=== PATIENT | female | born 1985 | race Caucasian/White ===

== ENCOUNTER 2024-02-29 16:03 | Emergency (ER) | payer OTHER, SELFPAY ==
[2024-02-29 16:05] VITALS: BP 140/82; BMI 20.1
--- NOTE | 2024-02-29 17:27 | ED.GENMED ---
History of Present Illness
<GERA Venegas Last Filed: 02/29/24 22:29>
General
Chief Complaint: Abdominal Pain
Source: patient
Time Seen by Provider: 02/29/24 16:44
Travel History
Have you had any contact with someone who has COVID-19?: No
Do you have any symptoms of coronavirus? Fever > 100 degrees, chills, cough, shortness of breath, sore throat, loss of taste or smell, muscle aches, or headache?: No
History of Present Illness
History of Present Illness:
38-year-old female otherwise healthy presents complaining of right lower quadrant abdominal pain starting 2 to 3 days ago. The pain is sharp fairly constant in nature. Made worse with motion and to the touch. She is due for her menstrual cycle
tomorrow. She notes a brown discharge which is not typical. She notes chills but no measurable fever. The pain occasionally radiates to the back. She has no increased pain with eating but does note a decreased appetite. She says she was
initially seen by her family doctor then sent here for further evaluation. No urinary symptoms. No other complaints. She is monogamous with her
Past History
<GERA Venegas Last Filed: 02/29/24 22:29>
Past History
ED Past Medical History: Other (C-diff)
ED Past Surgical History: None
Social History
Tobacco: Non-smoker
Alcohol: None
Personal:
Living: with family
Phy Exam
<GERA Venegas Last Filed: 02/29/24 22:29>
Physical Exam
Physical Exam:
General: Well appearing male no acute distress
HEENT: NC/AT
Heart: RRR, no murmurs
Lungs: CTA bilaterally
Abd: soft, tender to RLQ, mild guarding, no rebound, no CVA tenderness
Ext: no cyanosis or edema
Skin: warm, no rash or lesions
Course
<Kamron Mccrary PA-C - Last Filed: 02/29/24 22:29>
Orders/Labs/Results
Orders:
Orders
02/29/24 17:23
Iohexol [Omnipaque] See Protocol PO NOW STA
Test Result ONCE
US Pelvis W Transvag Combined Urgent
Comment:
Reason For Exam: RLQ pain ..
02/29/24 17:32
Complete Blood Count/With Diff Urgent
Urinalysis Reflex To Culture Urgent
Date Specimen was Collected: 02/29/24
Time Specimen was Collected: 17:30
Urine Microscopic Reflex Cult Urgent
02/29/24 19:30
Beta HCG Quantitative Urgent
Is this a screen?: No
Comment: ADD ON
Comprehensive Metabolic Panel Urgent
HCG, Serum Qualitative Screen Urgent
02/29/24 20:02
Add On- LAB Urgent
Tests Added?: beta hcg
02/29/24 21:13
US Abdomen - Appendix Only Urgent
Comment:
Reason For Exam: RLQ pain, positive test
02/29/24 22:21
Influenza A+B Rapid Molecular Stat
[facility] Source: Nasal Swab
Specimen Description:
Abnormal Lab Results
02/29/24 02/29/24
17:32 19:30
MCH 32.3 H pg
(27.0-31.0)
Absolute Monos (auto) 0.7 H 10^3/uL
(0.1-0.6)
Lymphocytes % 15.3 L %
(20.5-51.1)
Sodium 132 L mmol/L
(135-145)
Carbon Dioxide 21 L mmol/L
(22-30)
Creatinine 0.4 L mg/dL
(0.6-1.0)
Urine Ketones 1+ A
(Negative)
Ur Occult Blood Reflex 2+ A
(Negative)
Urine RBC 3-6 A /HPF
(0-2)
Urine Bacteria (Reflex) Few A
(Negative)
02/29/24 17:32
02/29/24 19:30
Vital Signs
Initial and Last Documented VS:
Initial Vital Signs
Temp Pulse Resp BP Pulse Ox
97.6 F 95 16 140/82 100
02/29/24 16:05 02/29/24 16:05 02/29/24 16:05 02/29/24 16:05 02/29/24 16:05
Last Documented Vital Signs
Temp Pulse Resp BP Pulse Ox
98.2 F 89 16 106/53 100
02/29/24 22:30 02/29/24 22:30 02/29/24 22:30 02/29/24 22:30 02/29/24 22:30
<Evy Billings MD - Last Filed: 02/29/24 22:09>
Orders/Labs/Results
Orders:
Orders
02/29/24 17:23
Iohexol [Omnipaque] See Protocol PO NOW STA
Test Result ONCE
US Pelvis W Transvag Combined Urgent
Comment:
Reason For Exam: RLQ pain ..
02/29/24 17:32
Complete Blood Count/With Diff Urgent
Urinalysis Reflex To Culture Urgent
Date Specimen was Collected: 02/29/24
Time Specimen was Collected: 17:30
Urine Microscopic Reflex Cult Urgent
02/29/24 19:30
Beta HCG Quantitative Urgent
Is this a screen?: No
Comment: ADD ON
Comprehensive Metabolic Panel Urgent
HCG, Serum Qualitative Screen Urgent
02/29/24 20:02
Add On- LAB Urgent
Tests Added?: beta hcg
02/29/24 21:13
US Abdomen - Appendix Only Urgent
Comment:
Reason For Exam: RLQ pain, positive test
02/29/24 22:21
Influenza A+B Rapid Molecular Stat
[facility] Source: Nasal Swab
Specimen Description:
Abnormal Lab Results
02/29/24 02/29/24
17:32 19:30
MCH 32.3 H pg
(27.0-31.0)
Absolute Monos (auto) 0.7 H 10^3/uL
(0.1-0.6)
Lymphocytes % 15.3 L %
(20.5-51.1)
Sodium 132 L mmol/L
(135-145)
Carbon Dioxide 21 L mmol/L
(22-30)
Creatinine 0.4 L mg/dL
(0.6-1.0)
Urine Ketones 1+ A
(Negative)
Ur Occult Blood Reflex 2+ A
(Negative)
Urine RBC 3-6 A /HPF
(0-2)
Urine Bacteria (Reflex) Few A
(Negative)
02/29/24 17:32
02/29/24 19:30
Vital Signs
Initial and Last Documented VS:
Initial Vital Signs
Temp Pulse Resp BP Pulse Ox
97.6 F 95 16 140/82 100
02/29/24 16:05 02/29/24 16:05 02/29/24 16:05 02/29/24 16:05 02/29/24 16:05
Last Documented Vital Signs
Temp Pulse Resp BP Pulse Ox
98.2 F 89 16 106/53 100
02/29/24 22:30 02/29/24 22:30 02/29/24 22:30 02/29/24 22:30 02/29/24 22:30
<Niurka Lombardi, TELEPHONE CLERK - Last Filed: 03/02/24 15:37>
Orders/Labs/Results
Orders:
Orders
02/29/24 17:23
Iohexol [Omnipaque] See Protocol PO NOW STA
Test Result ONCE
US Pelvis W Transvag Combined Urgent
Comment:
Reason For Exam: RLQ pain ..
02/29/24 17:32
Complete Blood Count/With Diff Urgent
Urinalysis Reflex To Culture Urgent
Date Specimen was Collected: 02/29/24
Time Specimen was Collected: 17:30
Urine Microscopic Reflex Cult Urgent
02/29/24 19:30
Beta HCG Quantitative Urgent
Is this a screen?: No
Comment: ADD ON
Comprehensive Metabolic Panel Urgent
HCG, Serum Qualitative Screen Urgent
02/29/24 20:02
Add On- LAB Urgent
Tests Added?: beta hcg
02/29/24 21:13
US Abdomen - Appendix Only Urgent
Comment:
Reason For Exam: RLQ pain, positive test
02/29/24 22:21
Influenza A+B Rapid Molecular Stat
[facility] Source: Nasal Swab
Specimen Description:
Abnormal Lab Results
02/29/24 02/29/24
17:32 19:30
MCH 32.3 H pg
(27.0-31.0)
Absolute Monos (auto) 0.7 H 10^3/uL
(0.1-0.6)
Lymphocytes % 15.3 L %
(20.5-51.1)
Sodium 132 L mmol/L
(135-145)
Carbon Dioxide 21 L mmol/L
(22-30)
Creatinine 0.4 L mg/dL
(0.6-1.0)
Urine Ketones 1+ A
(Negative)
Ur Occult Blood Reflex 2+ A
(Negative)
Urine RBC 3-6 A /HPF
(0-2)
Urine Bacteria (Reflex) Few A
(Negative)
02/29/24 17:32
02/29/24 19:30
Vital Signs
Initial and Last Documented VS:
Initial Vital Signs
Temp Pulse Resp BP Pulse Ox
97.6 F 95 16 140/82 100
02/29/24 16:05 02/29/24 16:05 02/29/24 16:05 02/29/24 16:05 02/29/24 16:05
Last Documented Vital Signs
Temp Pulse Resp BP Pulse Ox
98.2 F 89 16 106/53 100
02/29/24 22:30 02/29/24 22:30 02/29/24 22:30 02/29/24 22:30 02/29/24 22:30
<Kamron Mccrary PA-C - Last Filed: 02/29/24 22:29>
MDM/Problems Addressed
Differential Diagnosis Includes:
RLQ pain. Ovarian cyst vs torsion vs appendicitis vs renal colic vs ectopic
LAbs, ua, hcg pending, Start with US and progress to CT if US negative.
<Niurka Lombardi, TELEPHONE CLERK - Last Filed: 03/02/24 15:37>
MDM/Problems Addressed
MDM/Problems Addressed:
03/02/24 3:00 p.m.
Pt here for repeat HCG quant: Today it is 515.02 mIU/ml
Consulted OB Dr. Owens, pt is asymptomatic, needs repeat HCG in 2 days.
Pt came and picked up an out pt lab slip
She was instructed to call Dr. Owens (who is here OB) after her bloodwork on Sunday.
<Kamron Mccrary PA-C - Last Filed: 02/29/24 22:29>
*Critical Care Note
Total Time (30-74mins, 75-104mins- exclusive of procedures): Not Applicable
<Kamron Mccrary PA-C - Last Filed: 02/29/24 22:29>
Update Note
Update Note:
test was positive. Beta-hCG is 180. Ultrasound of pelvis was negative for IUP but does demonstrate 2 cm corpus luteal cyst on the left ovary. Ectopic could not be ruled out by this imaging study. We did proceed with an
appendix ultrasound which was equivocal as the appendix was not visualized. Patient reexamined and her pain is improved and better. Pain can be from ovarian cyst versus ectopic. If pain is improved do not suspect acute appendicitis currently with
normal blood work. Discussed findings with emergency room attending as well as [employer] [employer], Dr. Lea. Dr. Lea recommended repeat beta-hCG in 48 hours. She is to return to the emergency room in 2 days for repeat hCG or sooner if her pain increases. She
understood this. Stable for discharge
Blood type is a positive. No need for RhoGAM
ED Attending Note
<Kamron Mccrary PA-C - Last Filed: 02/29/24 22:29>
-
Portions of this chart may have been created with voice recognition software.� Occasional wrong word or��sound alike� substitutions may have occurred due to the inherent limitations of voice recognition software.
<Evy Billings MD - Last Filed: 02/29/24 22:09>
ED Attending Note
Patient seen and examined by attending physician: Yes
I performed the substantive portion of visit, reviewed & personally made and approve the management plan that is documented in note by myself or VIJI.: Yes
ED Attending Note:
38-year-old female presents emergency department with a history of chills, nausea, fatigue, body aches, sweats that started on Sunday and continued until today when it started to finally get better although not fully resolved. On Sunday she
also noted vaginal bleeding described as brown spotting which also continues and very mild discomfort in the right lower quadrant. She describes the right lower quadrant discomfort is intermittent, only with certain movements, not noted when she
was walking or holding her son. She has not been eating much because she has been in bed with fatigue and chills but denies nausea, vomiting, dysuria, urgency, frequency. She denies flank pain, bowel movements are normal. Here on exam, patient
noted to be newly with a beta of 180. Ultrasound shows a nonspecific finding at the left ovary which could be a cyst versus ectopic . Ultrasound of appendix unremarkable/nonvisualized. On exam, patient is not nauseous, overall
well-appearing, nontoxic. She has minimal discomfort in the right lower quadrant, no rebound or guarding.
Discharge Plan
Departure
Patient Disposition: Home (Routine Discharge)
Date of Disposition: 02/29/24
Time of Disposition: 22:25
Patient with high blood pressure during this ER visit?: No
Discharge Problem:
Abdominal pain
Instructions: Appendicitis in adults, Ectopic ED
Prescriptions:
No Action
acetaminophen 325 mg Tablet
650 mg PO Q4HPRN PRN (Reason: mild pain) Qty: 0 0RF
sennosides-docusate sodium 8.6-50 mg Tablet
1 tab PO DAILYPRN PRN (Reason: constipation) Qty: 0 0RF
ibuprofen 600 mg Tablet
600 mg PO Q6HPRN PRN (Reason: moderate pain/cramps) Qty: 45 0RF
prenat vit [id number]
1 dose PO DAILY
Referrals:
Gretta Armstrong MD [Family Provider] -
Activity Restrictions/Additional Instructions:
Please return here at any time if your pain increases or changes. Please return here for fever nausea or vomiting. Otherwise, please return here in 2 days, this Sunday, for repeat blood work specifically to recheck your hormone.
Interventions
Interventions:
*Risk Screen - Suicide Last Done: 02/29/24 16:05
*General Assessment Last Done: 02/29/24 17:52
*Neglect/Abuse Screening Last Done: 02/29/24 16:05
ED- Fall Risk Assessment Last Done: 02/29/24 22:52
*ED COVID-19 Vaccine History Last Done: 02/29/24 16:05
*Nursing Disposition Last Done: 02/29/24 22:52
XE-Hyayyp-Xasecrvhjv Assessment Last Done: 02/29/24 20:24
Discharge Date and Time
Discharge Date/Time: 02/29/24 22:53
Print Language: ICELANDIC
[2024-02-29 17:49] LABS: % Basophils 0.6 % (0-2); % Eosinophils 0.5 % (0-6); % Immature Granulocytes 0.4 % (0-0.5); % Lymphocytes 15.3 % (20.5-51.1); % Monocytes 8.2 % (1.7-9.3); Absolute Basophils 0.1 10^3/uL (0-0.2); Absolute Lymphocytes 1.3 10^3/uL (1.2-3.4); Absolute Monocytes 0.7 10^3/uL (0.1-0.6); Absolute Neutrophils 6.3 10^3/uL (1.4-6.5); Hematocrit 39.8 % (37.0-47.0); Hemoglobin 14.6 g/dL (12.0-16.0); Mean Corp Hgb Conc. 36.7 g/dL (33.0-37.0); Mean Corpuscular Hgb 32.3 pg (27.0-31.0); Mean Corpuscular Volume 88.1 fL (81.0-99.0); Mean Platelet Volume 10.1 fL (7.4-10.4); Nucleated Red Blood Cells % 0 %; Platelet Count 130 10^3/uL (130-400); Red Blood Cell Count 4.52 10^6/uL (4.20-5.40); Red Cell Dist. Width 11.6 % (11.5-14.5); White Blood Cell Count 8.3 10^3/uL (4.8-10.8)
[2024-02-29] MEDS: OMNIPAQUE 50 ML PO (17:49)
[2024-02-29 18:11] LABS: Urine Albumin Trace (Neg - Trace); Urine Bilirubin Negative (Negative); Urine Character Clear (Clear); Urine Color Yellow; Urine Glucose Negative (Negative); Urine Ketone 1+ (Negative); Urine Leukocyte Negative (Negative); Urine Nitrite Negative (Negative); Urine Occult Blood 2+ (Negative); Urine Specific Gravity 1.005 (<1.030); Urine Urobilinogen Negative (Neg - 1+)
[2024-02-29 18:22] LABS: Urine Bacteria Few (Negative); Urine White Cell 0-2 /HPF (0-5)
[2024-02-29 18:42] VITALS: BP 104/74
[2024-02-29 19:48] LABS: HCG, Serum Qualitative Screen Positive
[2024-02-29 20:00] LABS: ALT (SGPT) 16 U/L (0-35); AST (SGOT) 30 U/L (14-36); Albumin 3.8 g/dl (3.5-5.0); Alkaline Phosphatase 68 U/L (38-126); Blood Urea Nitrogen 9 mg/dl (7-17); Calcium 8.6 mg/dl (8.4-10.2); Carbon Dioxide 21 mmol/L (22-30); Chloride 102 mmol/L (98-107); Estimated Creatinine Clearance > 125 ml/min; Glucose 90 mg/dl (70-99); Potassium 3.6 mmol/L (3.5-5.1); Sodium 132 mmol/L (135-145); Total Bilirubin 0.6 mg/dl (0.2-1.3); Total Protein 6.8 g/dl (6.3-8.2); eGFR > 60.00
[2024-02-29 20:40] LABS: Beta HCG Quantitative 180.63 mIU/ml
[2024-02-29 22:30] VITALS: BP 106/53
== END 2024-02-29 22:53 | disposition home or self-care (01) ==
LOC: EMR 16:03
PROVIDERS: Emergency Medicine; Physician Assistant; EMERGENCY PHYSICIAN Emergency Medicine; FAMILY PHYSICIAN Family Medicine
DX: O26.899 Other specified pregnancy related conditions, unspecified trimester (principal); R10.31 Right lower quadrant pain; Z3A.00 Weeks of gestation of pregnancy not specified
CPT/HCPCS: 99284; 76705; 76830; 76856; 80053; 81003; 81015; 84702; 84703; 85025; 87502

== ENCOUNTER → 2024-03-02 13:36 | Outpatient (REF) | payer OTHER, SELFPAY ==
[2024-03-02 14:36] LABS: Beta HCG Quantitative 515.02 mIU/ml
== END ==
LOC: REG 13:36
PROVIDERS: ATTENDING PHYSICIAN Registered Nurse
DX: R10.9 Unspecified abdominal pain (principal); Z34.90 Encounter for supervision of normal pregnancy, unspecified, unspecified trimester
CPT/HCPCS: 84702

== ENCOUNTER → 2024-03-04 13:07 | Outpatient (REF) | payer OTHER, SELFPAY | LOC: REG 13:07 | PROVIDERS: ATTENDING PHYSICIAN Obstetrics & Gynecology; FAMILY PHYSICIAN Family Medicine | DX: R10.9 Unspecified abdominal pain (principal); Z34.90 Encounter for supervision of normal pregnancy, unspecified, unspecified trimester | CPT/HCPCS: 36415; 84702 ==

== ENCOUNTER → 2024-03-28 10:15 | Outpatient (REF) | payer OTHER, SELFPAY | LOC: RAD 10:15 | PROVIDERS: ATTENDING PHYSICIAN Obstetrics & Gynecology; FAMILY PHYSICIAN Family Medicine | DX: O36.80X9 Pregnancy with inconclusive fetal viability, other fetus (principal); O20.0 Threatened abortion | CPT/HCPCS: 76801; 76817 ==

== ENCOUNTER → 2024-04-07 13:51 | Outpatient (REF) | payer OTHER, SELFPAY | LOC: RAD 13:51 | PROVIDERS: ATTENDING PHYSICIAN Obstetrics & Gynecology; FAMILY PHYSICIAN Family Medicine | DX: R93.89 Abnormal findings on diagnostic imaging of other specified body structures (principal); Z34.91 Encounter for supervision of normal pregnancy, unspecified, first trimester | CPT/HCPCS: 76801; 76817 ==

== ENCOUNTER → 2024-04-17 11:13 | Outpatient (REF) | payer OTHER, SELFPAY | LOC: RAD 11:13 | PROVIDERS: ATTENDING PHYSICIAN Obstetrics & Gynecology; FAMILY PHYSICIAN Family Medicine | DX: O02.1 Missed abortion (principal); R93.89 Abnormal findings on diagnostic imaging of other specified body structures | CPT/HCPCS: 76801 ==

== ENCOUNTER → 2024-07-21 15:27 | Outpatient (REF) | payer OTHER, SELFPAY | LOC: PNTC 15:27 | PROVIDERS: ATTENDING PHYSICIAN Obstetrics & Gynecology | DX: Z34.90 Encounter for supervision of normal pregnancy, unspecified, unspecified trimester (principal); O09.529 Supervision of elderly multigravida, unspecified trimester | CPT/HCPCS: 76801 ==

== ENCOUNTER → 2024-08-06 11:08 | Outpatient (REF) | payer OTHER, SELFPAY | LOC: PNTC 11:08 | PROVIDERS: ATTENDING PHYSICIAN Obstetrics & Gynecology | DX: O02.1 Missed abortion (principal) | CPT/HCPCS: 76801; 76817 ==

== ENCOUNTER → 2024-10-24 14:35 | Outpatient (REF) | payer OTHER, SELFPAY | LOC: HWRAD 14:35 | PROVIDERS: ATTENDING PHYSICIAN Nurse Practitioner Family; FAMILY PHYSICIAN Family Medicine | DX: Z34.90 Encounter for supervision of normal pregnancy, unspecified, unspecified trimester (principal) | CPT/HCPCS: 76830; 76856 ==

== ENCOUNTER → 2025-06-29 17:09 | Outpatient (REF) | payer OTHER, SELFPAY | LOC: RAD 17:09 | PROVIDERS: ATTENDING PHYSICIAN Family Medicine | DX: R10.84 Generalized abdominal pain (principal) | CPT/HCPCS: 74177; Q9967 ==

== ENCOUNTER → 2025-09-24 10:51 | Outpatient (REF) | payer OTHER, SELFPAY | LOC: RAD 10:51 | PROVIDERS: ATTENDING PHYSICIAN Obstetrics & Gynecology; FAMILY PHYSICIAN Family Medicine | DX: O26.851 Spotting complicating pregnancy, first trimester (principal) | CPT/HCPCS: 76801 ==

== ENCOUNTER → 2025-10-12 08:23 | Outpatient (REF) | payer OTHER, SELFPAY | LOC: PNTC 08:23 | PROVIDERS: ATTENDING PHYSICIAN Obstetrics & Gynecology | DX: Z36.0 Encounter for antenatal screening for chromosomal anomalies (principal); Z36.82 Encounter for antenatal screening for nuchal translucency | CPT/HCPCS: 36415; 76801; 76813 ==